=== PATIENT | female | born 1965 | race Caucasian/White ===

== ENCOUNTER 2023-02-16 19:25 | Emergency (ER) | payer OTHER, SELFPAY ==
[2023-02-16 19:38] VITALS: BP 140/87; PULSE 96; RESP 18; TEMP 36.6; O2SAT 97; BMI 33.3
--- NOTE | 2023-02-16 21:04 | ED_ITS ---
HPI - Back Pain/Injury General Chief Complaint: Back Pain/Injury Stated Complaint: back spasms Time Seen by Provider: 02/16/23 21:01 Source: patient Mode of arrival: Ambulatory History of Present Illness HPI Narrative: Patient is a 57-year-old female. She has a history of occasional lower back spasms and lower back discomfort. She has a prescription for muscle relaxers. She states that she has had lower back pain for the past 3 days that is consistent with a prior history of spasms. There was not 1 specific incident that caused the pain. She is had no change in urinary symptoms. No fevers. No radiation down to her legs. Related Data Previous Rx's Medication Instructions Recorded hydrocodone 5 mg-acetaminophen 325 1 tab PO Q8H PRN pain #10 tabs 02/16/23 mg tablet ketorolac 10 mg tablet 10 mg PO Q6H PRN pain 5 days #20 02/16/23 tabs Allergies Allergy/AdvReac Type Severity Reaction Status Date / Time No Known Drug Allergies Allergy Verified 02/16/23 21:08 Review of Systems Constitutional Constitutional: Reports system reviewed and no additional complaints, except as documented Gastrointestinal Gastrointestinal: Reports system reviewed and no additional complaints, except as documented Genitourinary Genitourinary: Reports system reviewed and no additional complaints, except as documented Musculoskeletal Musculoskeletal: Reports system reviewed and no additional complaints, except as documented Patient History Social History Smoking Status: Never smoker Smoking Status: Never smoker alcohol intake frequency: a few times a month Substance Use Type: marijuana Exam Initial Vital Signs Initial Vital Signs: Vital Signs Temperature 98 F 02/16/23 19:38 Pulse Rate 96 H 02/16/23 19:38 Respiratory Rate 18 02/16/23 19:38 Blood Pressure 140/87 02/16/23 19:38 Pulse Oximetry 97 02/16/23 19:38 Oxygen Delivery Method Room Air 02/16/23 19:38 GI Inspection: normal to inspection and non-distended Back/Spine/Pelvis Thoracic/Lumbar Spine: paraspinal tenderness, No thoracic spinal tenderness and lumbar spinal tenderness Skin General: no rashes or lesions noted Neuro General: patient alert and patient awake Course Orders Ordered: Discontinued Medications Hydromorphone HCl (Hydromorphone 1 Mg Inj) 1 mg IM NOW ONE Stop: 02/16/23 21:05 Last Admin: 02/16/23 21:09 Dose: 1 mg Documented By: FERNY Ketorolac Tromethamine (Ketorolac 30 Mg/Ml Vial) 30 mg IM NOW ONE Stop: 02/16/23 21:05 Last Admin: 02/16/23 21:08 Dose: 30 mg Documented By: FERNY Vital Signs Vital signs: Vital Signs - 8 hr 02/16/23 19:38 02/16/23 22:04 Temperature 98 F Pulse Rate 96 H 80 Respiratory Rate 18 18 Blood Pressure 140/87 136/75 Pulse Oximetry 97 97 Oxygen Delivery Method Room Air Room Air MDM - Back Pain/Injury MDM Narrative Medical decision making narrative: Symptoms seem to be located in the lower lumbar region/sacral region. She is no radicular symptoms. No abdominal pain. No fevers. Low suspicion for cauda equina. After medications here in the emergency department she reports a co mplete resolution of all of her symptoms. Feel that we can hold any radiologic studies for now. No trauma. Will discharge home with symptom treatment. She was given return precautions. She expressed understanding and agreement. Discharge Plan Departure Patient Disposition: Home Clinical Impression: Strain of lumbar region Instructions: DI for Low Back Pain Prescriptions: New ketorolac 10 mg tablet 10 mg PO Q6H PRN (Reason: pain) 5 Days Qty: 20 0RF hydrocodone-acetaminophen 5-325 mg tablet 1 tab PO Q8H PRN (Reason: pain) Qty: 10 0RF Stand Alone Forms: Patient Portal/API
[2023-02-16] MEDS: KETOROLAC 30 MG/ML VIAL IM (21:08)
[2023-02-16] MEDS: HYDROMORPHONE 1 MG INJ IM (21:09)
[2023-02-16 22:04] VITALS: BP 136/75; PULSE 80; RESP 18; O2SAT 97
== END 2023-02-16 22:05 | disposition home or self-care (01) ==
PROVIDERS: Emergency Provider Emergency Medicine
DX: S39.012A Strain of muscle, fascia and tendon of lower back, initial encounter (principal); X58.XXXA Exposure to other specified factors, initial encounter
CPT/HCPCS: 96372; 99283; J1170; J1885